=== PATIENT | male | born 1975 | race Asian ===

== ENCOUNTER 2021-02-22 22:58 | Emergency (ER) | payer OTHER ==
[~2021-02-22] VITALS: Ht 180.3 cm; Wt 90.9 kg
[2021-02-23] MEDS ORDERED: PERTUSS(ACELL),DIPH,TET VAC/PF 0.5 ML SYRINGE IM. ONE (01:15)
[2021-02-23] MEDS ORDERED: LIDOCAINE 1% 10 ML VIAL SQ ONE (01:15)
[2021-02-23] MEDS ORDERED: BACITRACIN 0.9 GM PACKET OINTMENT TP ONE (01:15)
[2021-02-23 02:30] VITALS: BP 132/80
== END 2021-02-23 03:24 | disposition home or self-care (01) ==
LOC: EMS 22:58
DX: S61.412A Laceration without foreign body of left hand, initial encounter (principal); W25.XXXA Contact with sharp glass, initial encounter; Y93.89 Activity, other specified; Y92.89 Other specified places as the place of occurrence of the external cause; Y99.8 Other external cause status
CPT/HCPCS: 12002; 90471; 90715; 99283; J3490